=== PATIENT | male | born 1965 | race African-American/Black ===

== ENCOUNTER 2024-03-10 19:22 | Emergency (ER) | payer MEDICAID ==
[~2024-03-10] VITALS: Ht 185.4 cm; Wt 100.0 kg
[2024-03-10 19:30] VITALS: BP 135/85; RESP 14; O2SAT 94
[2024-03-10 19:47] VITALS: PULSE 60
[2024-03-10 20:21] LABS: Basophils # (auto) 0 10 ^3/uL (0-0.2); Basophils % (auto) 0.4 % (0.0-2.0); Eosinophils # (auto) 0 10 ^3/uL (0-0.8); Eosinophils % (auto) 0.1 % (0.0-7.0); Hematocrit 43.3 % (41.0-53.0); Hemoglobin 14.2 g/dL (13.5-17.5); Lymphocytes # (auto) 0.5 10 ^3/uL (0.4-5.4); Mean Corpuscular Hgb Conc. 32.7 g/dL (32.0-36.0); Mean Corpuscular Volume 85.5 fL (80.0-100.0); Monocytes # (auto) 0.3 10 ^3/uL (0-1.3); Monocytes % (auto) 3.4 % (0.0-12.0); Neutrophils # (auto) 7.3 10 ^3/uL (1.6-8.6); Neutrophils % (auto) 90.1 % (37.0-80.0); Platelet Count (auto) 368 10^3/uL (140-450); Red Blood Cells 5.06 10^6/uL (4.5-5.90); White Blood Cell 8.1 10^3/uL (4.4-10.8)
--- NOTE | 2024-03-10 20:28 | DVH ---
EXAM: CT HEAD WITHOUT CONTRAST INDICATION: aloc TECHNIQUE: CT of the head without intravenous contrast. Radiation Dose : 1. Head: CT Dose: CTDI volume is 67.1 mGy. Dose-length product is 1210 mGy*cm The dose indicators for CT are the volume Computed Tomography (CT) Dose Index (CTDIvol) and the Dose Length Product (DLP), and are measured in units of mGy and mGy-cm, respectively. These indicators are not patient dose, but values generated from the CT scanner acquisition factors. The report includes radiation exposure data for exposures received during this examination. COMPARISON: None FINDINGS: There is no evidence of acute intracranial hemorrhage, extra-axial collection, mass effect, midline s hift, herniation or hydrocephalus. The ventricles, sulci and cisterns are age appropriate. Regional hypoattenuation of the left cerebellum which may reflect indeterminate age infarct Patchy periventricular and subcortical white matter hypoattenuation is nonspecific but may be related to small vessel ischemic disease. The visualized paranasal sinuses and mastoid air cells are clear. The surrounding soft tissues and osseous structures are unremarkable. IMPRESSION: 1. Regional hypoattenuation of the left cerebellum may reflect indeterminate age infarct. Consider M RI brain for further evaluation. 2. No acute intracranial hemorrhage Radiation optimization: All CT scans at this facility use at least one of these dose optimization arun hniques: automated exposure control mA and/or kV adjustment per patient size (includes targeted exam s where dose is matched to clinical indication) or iterative reconstruction.
[2024-03-10 20:40] LABS: Alanine Aminotransferase 24 U/L (7-40); Albumin 4.1 g/dL (3.2-4.8); Alkaline Phosphatase 104 U/L (46-116); Anion Gap 8 (5-15); Aspartate Aminotransferase 22 U/L (13-40); BUN/Creatinine Ratio 12.8 (10.0-20.0); Bilirubin, Total 0.5 mg/dL (0.2-1.0); Blood Urea Nitrogen 10 mg/dL (9-23); Calcium 9.7 mg/dL (8.7-10.4); Carbon Dioxide 26 mmol/L (20-31); Chloride 102 mmol/L (98-107)
[2024-03-10 20:41] LABS: Urine Amorphous Crystal FEW /hpf (None Seen); Urine Bacteria FEW /hpf (None Seen); Urine Blood Negative /uL (Negative); Urine Clarity Turbid (Clear); Urine Color Colorless (Yellow); Urine Mucus FEW (None Seen); Urine Protein, UAD TRACE (Negative); Urine Specific Gravity 1.015 (1.001-1.035); Urine Squamous Epithelial Cell FEW /hpf (<5); Urine Urobilinogen Normal (Negative); Urine WBC 30 /hpf (0 - 3)
[2024-03-10 20:42] LABS: Glucose 145 mg/dL (74-106); Potassium 3.4 mmol/L (3.5-5.1); Sodium 136 mmol/L (136-145); Total Protein 8.8 g/dL (5.7-8.2)
[2024-03-10] MEDS ORDERED: LEVO500T91 PO (21:08)
--- NOTE | 2024-03-10 21:09 | ED.PDOC ---
Altered Mental Status HPI Comments 5-year-old male brought in by and son. states that they were at [facility] earlier in the day. Patient woke up with a gaze in his face and slightly altered. Slow to respond. 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 They had CT scans of his head chest abdomen pelvis done all scans were negative they were advised that patient had urinary tract infection. Patient was given vancomycin and Levaquin. Family was unhappy that patient was sitting in the hallway when he was supposed to be admitted. They took the patient on their own and brought him to this emergency department. Patient was able to answer questions appropriately he was slow to respond though. Chief Complaint: ALOC Time Seen by MD: 19:38 Reviewed Notes: Nurses Notes Allergies: Coded Allergies: Penicillins (Verified Allergy, Unknown, 03/10/24) Information Source: Patient Mode of Arrival: Wheelchair Past Medical History PAST MEDICAL HISTORY: Pt Confused Unable to Obtain due to: Altered Mental Status Physical Exam General Appearance: No Apparent Distress, Normal HEENT: Normal ENT Inspection, Pharynx Normal, TMs Normal Neck: Full Range of Motion, Non-Tender, Normal, Normal Inspection Respiratory: Chest Non-Tender, Lungs Clear, No Accessory Muscle Use, No Respiratory Distress, Normal Breath Sounds Cardiovascular: No Edema, No JVD, No Murmur, No Gallop, Normal Peripheral Pu lses, Regular Rate/Rhythm Breast Exam: Deferred Gastrointestinal: No Organomegaly, Non Tender, No Pulsatile Mass, Normal Bowel Sounds, Soft Genitalia: Deferred Pelvic: Deferred Rectal: Deferred Extremities: NOT DONE Musculoskeletal : Apperance: Normal Neurologic: Alert, No Motor Deficits, Normal Affect, Normal Mood, No Sensory De ficits Cerebellar Function: Normal Reflexes: Normal Skin: Dry, Normal Color, Warm Lymphatic: No Adenopathy Was a procedure done? Was a procedure done?: No Differential Diagnosis (ALOC) Differential Diagnosis: Hypoglycemia, DKA, Hypoxemia, Seizure, Closed Head Injury, CVA X-Ray, Labs, Meds, VS Vital Signs Date Time Temp Pulse Resp B/P (MAP) Pulse Ox O2 Delivery O2 Flow Rate FiO2 03/10/24 19:47 60 03/10/24 19:30 97.3 67 14 135/85 (102) 94 Lab Test 03/10/24 19:59 03/10/24 19:45 Range/Units White Blood Count 8.1 4.4-10.8 10^3/uL Red Blood Count 5.06 4.5-5.90 10^6/uL Hemoglobin 14.2 13.5-17.5 g/dL Hematocrit 43.3 41.0-53.0 % Mean Corpuscular Volume 85.5 80.0-100.0 fL Mean Corpuscular Hemoglobin 28.0 28.0-32.0 pg Mean Corpuscular Hemoglobin Concent 32.7 32.0-36.0 g/dL Red Cell Distribution Width 18.0 H 11.8-14.3 % Platelet Count 368 140-450 10^3/uL Mean Platelet Volume 7.2 6.9-10.8 fL Neutrophils (%) (Auto) 90.1 H 37.0-80.0 % Lymphocytes (%) (Auto) 6.0 L 10.0-50.0 % Monocytes (%) (Auto) 3.4 0.0-12.0 % Eosinophils (%) (Auto) 0.1 0.0-7.0 % Basophils (%) (Auto) 0.4 0.0-2.0 % Neutrophils # (Auto) 7.3 1.6-8.6 10 ^3/uL Lymphocytes # (Auto) 0.5 0.4-5.4 10 ^3/uL Monocytes # (Auto) 0.3 0-1.3 10 ^3/uL Eosinophils # (Auto) 0 0-0.8 10 ^3/uL Basophils # (Auto) 0 0-0.2 10 ^3/uL Nucleated Red Blood Cells 0.0 % Sodium Level 136 136-145 mmol/L Potassium Level 3.4 L 3.5-5.1 mmol/L Chloride Level 102 98-107 mmol/L Carbon Dioxide Level 26 20-31 mmol/L Anion Gap 8 5-15 Blood Urea Nitrogen 10 9-23 mg/dL Creatinine 0.78 0.700-1.30 mg/dL Glomerular Filtration Rate Calc 102 >90 mL/min BUN/Creatinine Ratio 12.8 10.0-20.0 Serum Glucose 145 H 74-106 mg/dL Lactic Acid Level 1.9 0.4-2.0 mmol/L Calcium Level 9.7 8.7-10.4 mg/dL Total Bilirubin 0.5 0.2-1.0 mg/dL Aspartate Amino Transferase (AST) 22 13-40 U/L Alanine Aminotransferase (ALT) 24 7-40 U/L Alkaline Phosphatase 104 46-116 U/L Total Protein 8.8 H 5.7-8.2 g/dL Albumin 4.1 3.2-4.8 g/dL Urine Color Colorless Yellow Urine Clarity Turbid H Clear Urine pH 7.0 5.0-9.0 Urine Specific [place] 1.015 1.001-1.035 Urine Protein Trace H Negative Urine Ketones Negative Negative Urine Blood Negative Negative /uL Urine Nitrite 1+ H Negative Urine Bilirubin Negative Negative Urine Urobilinogen Normal Negative mg/dL Urine Leukocyte Esterase 2+ Negative /uL Urine RBC None seen 0 - 3 /hpf Urine WBC 30 0 - 3 /hpf Urine Squamous Epithelial Cells Few <5 /hpf Urine Amorphous Crystals Few None Seen /hpf Urine Bacteria Few H None Seen /hpf Urine Mucus Few None Seen Urine Glucose Normal Normal mg/dL X-Ray, Labs, Meds, VS Comment Imaging: X-rays and CT scans were reviewed and interpreted by this provider, imaging shows no fractures and no pathological disease. Pending radiology review. Laboratory: Labs reviewed and interpreted by this provider. No significant abnormalities noted. Patient has prior medical visits reviewed. Med reconciliation performed Vital signs reviewed Patient received vancomycin and Levaquin at prior hospital. Patient will be discharged home with antibiotics. Time of 1ST Reevaluation: 21:08 Reevaluation 1ST: Improved Patient Education/Counseling: Diagnosis, Treatment, Need For Follow Up (Follow up with PCP in the next 2-4 days. Return to the emergency department if symptoms worsen.) Family Education/Counseling: Diagnosis Departure 1 Departure Time of Disposition: 21:07 Impression: Primary Impression: Urinary tract infection Qualified Codes: N30.01 - Acute cystitis with hematuria Disposition: HOME / SELF CARE / HOMELESS Condition: Fair e-Prescriptions Levofloxacin Hemihydrate (LEVOFLOXACIN) 500 Mg Tab 1 TAB PO DAILY, #7 TAB Prov: KRISTIAN DAVIS 03/10/24 Discharged With: Self Critical Care Note Critical Care Time?: No Stability Stability form required: No Heart Score Heart Score: Heart Score Response (Comments) Value History N/A 0 EKG N/A 0 Age N/A 0 Risk Factors N/A 0 Troponin N/A 0 Total 0 KRISTIAN DAVIS [facility] Mar 10, 2024 21:08
--- NOTE | 2024-03-11 03:13 | ECG ---
[facility] Test Date: 2024-03-10 Test Time: 19:46:44 Pat Name: CADEN VAZ Department: ER Room: Gender: M Independent Distributor: JU : 1965 Requested By: KRISTIAN DAVIS Order Number: [id number] Reading MD: Sam Hernandez Measurements Intervals [place] Rate: 70 P: 59 ID: [id number] QRS: 44 QRSD: 100 T: 206 QT: 483 QTc: 522 Interpretive Statements Sinus rhythm Prolonged ID interval LVH w/ repol abnormalities, possible ischemia Minimal ST elevation, inferior leads Prolonged QT interval Baseline wander in lead(s) V2 Electronically Signed On 03-14-2024 15:43:20 PST by Sam Hernandez Please click the below link to view image of tracing.
--- NOTE | 2024-03-11 12:58 | ECG ---
[facility] Test Date: 2024-03-10 Test Time: 19:47:59 Pat Name: CADEN VAZ Department: ER Room: Gender: M Human Resources Assistant: JU : 1965 Requested By: KRISTIAN DAVIS Order Number: [id number] Reading MD: Sam Hernandez Measurements Intervals [place] Rate: 60 P: 58 NC: 256 QRS: 17 QRSD: 96 T: 241 QT: 460 QTc: 460 Interpretive Statements Sinus rhythm Prolonged NC interval Consider left atrial enlargement Abnormal T, consider ischemia, diffuse leads Baseline wander in lead(s) V2 Electronically Signed On 03-14-2024 15:43:28 PST by Sam Hernandez Please click the below link to view image of tracing.
== END 2024-03-10 22:28 | disposition home or self-care (01) ==
LOC: ER 19:22
DX: N39.0 Urinary tract infection, site not specified (principal); Z88.0 Allergy status to penicillin
CPT/HCPCS: 36415; 70450; 80053; 81001; 83605; 85025; 93005